=== PATIENT | female | born 1985 | race Caucasian/White ===

== ENCOUNTER 2021-06-02 10:57 | Emergency (ER) | payer BC, OTHER, MEDICAID ==
[~2021-06-02 10:57] MED LIST: Iopamidol-370 76% 500 ML 1 ML ONE
[2021-06-02 12:53] LABS: #Eosinphils 0.2 thou/uL (0.0-0.7); #Lymphocytes 2.2 thou/uL (1.20-3.40); #Neutrophils 9.4 thou/uL (1.40-6.50); %Basophils 0.3 % (0.0-1.0); %Eosinophils 1.9 % (0.0-10.0); %Lymphocytes 17.1 % (21.0-51.0); %Monocytes 7.7 % (0.0-10.0); Hemoglobin 12.5 g/dL (12.0-16.0); Mean Corpuscular HGB CONC 32.8 g/dL (32.0-36.0); Mean Corpuscular Hemoglobin 27.5 pg (27.0-31.0); Mean Corpuscular Volume 83.9 fL (78.0-98.0); Mean Platelet Volume 7.7 fL (7.4-10.4); Platelet Count 282 thou/uL (130-400); RBC Distribution Width 13.9 % (11.5-14.5); Red Blood Cell (RBC) Count 4.53 mill/uL (4.20-5.40); White Blood Cell (WBC) Count 12.9 thou/uL (4.8-10.8)
[2021-06-02 12:59] LABS: BHCG - Serum Negative (NEGATIVE); Pregs Control Background? CLEAR/WHITE (CLR/WHITE); Pregs Control Bar Appear? YES (CONTROL BAR)
[2021-06-02] MEDS ORDERED: Ondansetron PF 4 MG/2 ML Vial ONE (13:11)
[2021-06-02 13:16] LABS: ALT (SGPT) 20 U/L (8-55); AST (SGOT) 17 U/L (5-34); Albumin 3.5 g/dL (3.5-5.0); Alkaline Phosphatase 110 U/L (40-110); Anion Gap 9 mmol/L (10-20); BUN (Urea Nitrogen) 9 mg/dL (7.0-18.7); Bilirubin, Total 0.4 mg/dL (0.2-1.2); Calc. Creatinine Clearance 0 mL/min (70-130); Calcium 9.4 mg/dL (7.8-10.44); Carbon Dioxide 29 mmol/L (22-29); Chloride 98 mmol/L (98-107); Globulin 3.7 g/dL (2.4-3.5); Glucose 94 mg/dL (70-105); Lipase 14 U/L (8-78); Potassium 3.8 mmol/L (3.5-5.1); Protein, Total 7.2 g/dL (6.0-8.3); Sodium 132 mmol/L (136-145)
[2021-06-02] MEDS ORDERED: Morphine 4 MG/ML VIAL ONE (13:40)
[2021-06-02] MEDS ORDERED: cefTRIAXone\\ROCEPHIN 1 GM VIAL ONE (13:40)
[2021-06-02] MEDS ORDERED: metroNIDAZOLE 500 MG in Premix Bag 1 BAG IVPB SCH (14:00)
[2021-06-02] MEDS ORDERED: metroNIDAZOLE 500 MG/100 ML BAG ONE (14:22)
[2021-06-02 15:16] LABS: Bilirubin Negative (Negative); Blood, Urine Negative (Negative); Clarity Clear (Clear); Glucose, Urine (Dipstick) Normal (Negative); Ketone, Urine Negative (Negative); Leukocyte Negative Leu/uL (Negative); Nitrite Negative (Negative); Protein, Urine (Dipstick) Negative (Neg-Trace); Urobilinogen Normal mg/dL (Less than 2); pH, Urine 5.5 (5.0-9.0)
[2021-06-02 15:17] LABS: Specific Gravity, Urine 1.045 (1.002-1.036)
== END 2021-06-02 16:58 | disposition short-term general hospital (02) ==
LOC: ERS 10:57
DX: N99.89 Other postprocedural complications and disorders of genitourinary system (principal); R10.30 Lower abdominal pain, unspecified; I10 Essential (primary) hypertension; J45.909 Unspecified asthma, uncomplicated; F17.210 Nicotine dependence, cigarettes, uncomplicated; Z90.710 Acquired absence of both cervix and uterus
CPT/HCPCS: 36415; 74177; 80053; 81003; 83605; 83690; 84703; 85025; 86850; 86900; 86901; 87040; 93005; 96365; 96367; 96375; J0696; J2270; J2405; Q9967

== ENCOUNTER 2023-12-05 11:56 | Emergency (ER) | payer BC, MEDICAID, OTHER ==
[2023-12-05] MEDS ORDERED: Ketorolac Tromethamine 30 MG (1 mL) VIAL ONE (13:49)
[2023-12-05] MEDS ORDERED: HYDROcodone/Acetaminophen 5/325 mg Tablet ONE (15:06)
== END 2023-12-05 15:14 | disposition home or self-care (01) ==
LOC: ERS 11:56
DX: S06.0X0A Concussion without loss of consciousness, initial encounter (principal); F17.210 Nicotine dependence, cigarettes, uncomplicated; F17.290 Nicotine dependence, other tobacco product, uncomplicated; W22.8XXA Striking against or struck by other objects, initial encounter
CPT/HCPCS: 70450; 72125; 96372; J1885

== ENCOUNTER 2024-04-29 13:20 | Inpatient (IN) | payer SELFPAY ==
[2024-04-29] MEDS ORDERED: Nitroglycerin 2% Ointment 1 INCH/1 GM Packet ONE (13:45)
[2024-04-29] MEDS ORDERED: Aspirin Chewable 81 MG TAB ONE (13:45)
[2024-04-29 14:08] LABS: #Basophils 0.09 10x3/uL (0.0-0.2); %Basophils 1.1 % (0.0-1.0); %Eosinophils 4.3 % (0.0-10.0); %Lymphocytes 33.5 % (21.0-51.0); %Monocytes 8.1 % (0.0-10.0); %Neutrophils 52.6 % (42.0-75.0); Hematocrit 44.1 % (36.0-47.0); Hemoglobin 14.2 g/dL (12.0-16.0); Mean Corpuscular HGB CONC 32.2 g/dL (32.0-36.0); Mean Corpuscular Hemoglobin 26.2 pg (27.0-31.0); Mean Corpuscular Volume 81.4 fL (78.0-98.0); Mean Platelet Volume 9.9 fL (7.4-10.4); Platelet Count 368 10x3/uL (130-400); RBC Distribution Width 14.3 % (11.5-14.5); Red Blood Cell (RBC) Count 5.42 mill/uL (4.20-5.40)
[2024-04-29 14:27] LABS: ALT (SGPT) 21 U/L (8-55); AST (SGOT) 18 U/L (5-34); Albumin 3.9 g/dL (3.5-5.0); Alkaline Phosphatase 132 U/L (40-110); Anion Gap 12 mmol/L (10-20); BUN (Urea Nitrogen) 11 mg/dL (7.0-18.7); Bilirubin, Total 0.2 mg/dL (0.2-1.2); Calc. Creatinine Clearance 0 mL/min (70-130); Calcium 10.5 mg/dL (7.8-10.44); Carbon Dioxide 27 mmol/L (22-29); Chloride 105 mmol/L (98-107); Estimated GFR 93; Globulin 4.2 g/dL (2.4-3.5); Glucose 102 mg/dL (70-105); Lipase 35 U/L (8-78); Potassium 3.8 mmol/L (3.5-5.1); Protein, Total 8.1 g/dL (6.0-8.3); Sodium 140 mmol/L (136-145)
[2024-04-29 14:30] LABS: Troponin I Less than 0.010 ng/mL (< 0.028)
[2024-04-29] MEDS ORDERED: Nitroglycerin 50 MG/250 ML BOT 250 ML ONE (15:56)
[2024-04-29] MEDS ORDERED: fentaNYL 50 mcg/mL 1 mL Vial ONE (16:54)
[2024-04-29 17:00] LABS: Troponin I Less than 0.010 ng/mL (< 0.028)
[2024-04-29] MEDS ORDERED: Ipratropium/Albuterol 3 ML NEB NEB PRN (17:05)
[2024-04-29] MEDS ORDERED: niCARdipine 25 MG/10 ML SDV ONE (17:26)
[2024-04-29 20:20] LABS: Troponin I Less than 0.010 ng/mL (< 0.028)
[2024-04-29] MEDS ORDERED: hydrALAZINE 20 MG/ML VIAL SLOW IVP PRN (20:57)
[2024-04-29] MEDS ORDERED: niCARdipine 25 MG in Sodium Chloride 0.9% 250 ML 250 ML IVPB SCH (21:00)
[2024-04-29 21:20] VITALS: BMI 35.9
[2024-04-29] MEDS ORDERED: Ondansetron PF 4 MG/2 ML Vial IVP PRN (22:05)
[2024-04-29] MEDS ORDERED: traMADol HCl 50 MG TAB PO PRN (22:05)
[2024-04-29] MEDS: traMADol HCl 50 MG TAB PO PRN (22:15)
[2024-04-29] MEDS: Acetaminophen 325 MG TAB PO SCH (22:40)
[2024-04-29] MEDS: Labetalol HCl 100 MG/20 ML VIAL SLOW IVP PRN (23:18)
[2024-04-29] MEDS: Ketorolac Tromethamine 30 MG (1 mL) VIAL IVP SCH (23:31)
[2024-04-30 06:54] LABS: #Basophils 0.06 10x3/uL (0.0-0.2); %Basophils 0.8 % (0.0-1.0); %Lymphocytes 31.5 % (21.0-51.0); %Monocytes 9.1 % (0.0-10.0); %Neutrophils 53.2 % (42.0-75.0); Mean Corpuscular HGB CONC 31.7 g/dL (32.0-36.0); Mean Corpuscular Hemoglobin 26.2 pg (27.0-31.0); Mean Corpuscular Volume 82.5 fL (78.0-98.0); Mean Platelet Volume 9.9 fL (7.4-10.4); Platelet Count 319 10x3/uL (130-400); RBC Distribution Width 14.4 % (11.5-14.5); Red Blood Cell (RBC) Count 4.97 mill/uL (4.20-5.40)
[2024-04-30 07:22] LABS: Anion Gap 13 mmol/L (10-20); BUN (Urea Nitrogen) 13 mg/dL (7.0-18.7); Calc. Creatinine Clearance 179 mL/min (70-130); Calcium 9.2 mg/dL (7.8-10.44); Carbon Dioxide 26 mmol/L (22-29); Chloride 104 mmol/L (98-107); Estimated GFR 107; Glucose 100 mg/dL (70-105); Potassium 3.7 mmol/L (3.5-5.1); Sodium 139 mmol/L (136-145)
[2024-04-30] MEDS: Enoxaparin 40 MG (0.4 mL) SYRINGE SC SCH (08:57)
[2024-04-30] MEDS: Aspirin 81 mg Enteric Coated Tablet PO SCH (08:57)
[2024-04-30] MEDS: Pantoprazole 40 MG VIAL IVP SCH (08:57)
[2024-04-30] MEDS: NIFEdipine XL 30 MG ER.TAB PO SCH ×2 (08:57→21:27)
[2024-04-30 08:58] VITALS: BP 147/92
[2024-05-01] MEDS: Morphine 4 MG/ML VIAL SLOW IVP PRN (00:04)
[2024-05-01 04:21] LABS: #Basophils 0.06 10x3/uL (0.0-0.2); %Basophils 0.9 % (0.0-1.0); %Eosinophils 5.5 % (0.0-10.0); %Lymphocytes 38.7 % (21.0-51.0); %Monocytes 8.3 % (0.0-10.0); %Neutrophils 46.2 % (42.0-75.0); Hematocrit 42.3 % (36.0-47.0); Hemoglobin 13.6 g/dL (12.0-16.0); Mean Corpuscular HGB CONC 32.2 g/dL (32.0-36.0); Mean Corpuscular Hemoglobin 26.9 pg (27.0-31.0); Mean Corpuscular Volume 83.6 fL (78.0-98.0); Mean Platelet Volume 9.6 fL (7.4-10.4); Platelet Count 345 10x3/uL (130-400); RBC Distribution Width 14.2 % (11.5-14.5); Red Blood Cell (RBC) Count 5.06 mill/uL (4.20-5.40)
[2024-05-01 04:24] LABS: Anion Gap 12 mmol/L (10-20); BUN (Urea Nitrogen) 13 mg/dL (7.0-18.7); Calc. Creatinine Clearance 179 mL/min (70-130); Calcium 9.3 mg/dL (7.8-10.44); Carbon Dioxide 25 mmol/L (22-29); Chloride 104 mmol/L (98-107); Estimated GFR 107; Glucose 106 mg/dL (70-105); Potassium 3.9 mmol/L (3.5-5.1); Sodium 137 mmol/L (136-145)
[2024-05-01 04:44] LABS: Free T4 (Free Thyroxine) 0.83 ng/dL (0.70-1.48); Thyroid Stimulating Hormone 8.2653 uIU/mL (0.35-4.94)
[2024-05-01] MEDS: NIFEdipine XL 30 MG ER.TAB PO SCH (08:07)
[2024-05-01] MEDS ORDERED: Pantoprazole DR 40 MG TAB PO SCH (09:00)
[2024-05-01] MEDS ORDERED: Regadenoson 0.4 MG/5 ML SYRINGE ONE (10:10)
[2024-05-01 12:45] VITALS: TEMP 97.9
== END 2024-05-01 14:59 | disposition home or self-care (01) | DRG 305 ==
LOC: ERS 13:20 → CCU 15:54 → OBSVTOIN 22:05
PROVIDERS: ADMIT Internal Medicine; ATTEND Internal Medicine
DX: I16.9 Hypertensive crisis, unspecified (principal); J45.909 Unspecified asthma, uncomplicated; E66.9 Obesity, unspecified; E03.9 Hypothyroidism, unspecified; Z88.0 Allergy status to penicillin; Z88.1 Allergy status to other antibiotic agents; Z88.8 Allergy status to other drugs, medicaments and biological substances; Z79.899 Other long term (current) drug therapy; Z90.710 Acquired absence of both cervix and uterus; Z87.891 Personal history of nicotine dependence; Z91.148 Patient's other noncompliance with medication regimen for other reason
CPT/HCPCS: 36415; 71045; 76770; 78452; 80048; 80053; 83690; 83880; 84439; 84443; 84481; 84484; 85025; 93005; 93017; 93306; 96374; A9502; G0378; J1650; J1885; J2785; J3010

== ENCOUNTER 2025-07-28 14:58 | Outpatient (CLI) | payer OTHER | END 2025-07-28 14:59 | disposition home or self-care (01) | LOC: SCSRAD 14:58 | PROVIDERS: ATTEND Family Medicine | DX: M54.81 Occipital neuralgia (principal); M40.50 Lordosis, unspecified, site unspecified; M43.12 Spondylolisthesis, cervical region; M47.812 Spondylosis without myelopathy or radiculopathy, cervical region | CPT/HCPCS: 72050 ==